=== PATIENT | female | born 1985 | race Caucasian/White ===

== ENCOUNTER → 2017-12-18 | Outpatient (CLI) | payer BC ==
[~2017-12-18] MED LIST: ADDR10T PO; CPR500T PO; METR500T PO
[2017-12-18 16:06] LABS: BASOPHILS % (AUTO) 1 % (0-10); EOSINOPHILS # (AUTO) 0.2 10^3/uL (0.0-0.3); EOSINOPHILS % (AUTO) 4 % (0-10); HEMATOCRIT 37 % (35-52); HEMOGLOBIN 12.5 G/DL (11.5-16.0); LYMPHOCYTES % (AUTO) 33 % (12-44); MEAN CORPUSCULAR HEMOGLOBIN 30 PG (25-34); MEAN CORPUSCULAR HGB CONC 34 G/DL (32-36); MEAN CORPUSCULAR VOLUME 89 FL (80-99); MEAN PLATELET VOLUME 10.2 FL (7.4-10.4); MONOCYTES # (AUTO) 0.3 X 10^3 (0.0-1.0); MONOCYTES % (AUTO) 6 % (0-12); NEUTROPHILS # (AUTO) 3.4 X 10^3 (1.8-7.8); NEUTROPHILS % (AUTO) 57 % (42-75); PLATELET COUNT 280 10^3/uL (130-400); RED BLOOD COUNT 4.17 10^6/uL (4.35-5.85); RED CELL DISTRIBUTION WIDTH 14.2 % (10.0-14.5)
[2017-12-18 16:43] LABS: FREE T4 (FREE THYROXINE) 1.17 NG/DL (0.70-1.48)
== END ==
LOC: LAB 15:46
DX: E03.4 Atrophy of thyroid (acquired) (principal)
CPT/HCPCS: 36415; 84439; 84443; 85025

== ENCOUNTER → 2018-05-06 | Outpatient (CLI) | payer BC ==
[2018-05-06 12:40] LABS: FREE T4 (FREE THYROXINE) 0.99 NG/DL (0.70-1.48)
== END ==
LOC: LAB 11:30
DX: E03.4 Atrophy of thyroid (acquired) (principal)
CPT/HCPCS: 36415; 84439; 84443

== ENCOUNTER → 2018-07-16 | Outpatient (CLI) | payer BC ==
--- NOTE | 2018-07-16 12:52 | Diagnostic Imaging Report ---
EXAM: RIGHT UPPER QUADRANT ULTRASOUND. DATE: July 16, 2018. COMPARISON: CT abdomen/pelvis of March 22, 2011. INDICATION: 32-year-old female, severe right upper quadrant abdominal pain. PROCEDURE: Two-dimensional grayscale and color doppler ultrasound examination of the right upper quadrant was performed. FINDINGS: Liver: The liver is of normal size and echotexture without solid or cystic masses. Bile ducts and gallbladder: There is a nonmobile echogenic focus along the gallbladder wall without shadowing, likely relating to a polyp, measuring 6 mm in size. There is no shadowing gallstone. The gallbladder is not distended. There is no pericholecystic fluid. The gallbladder wall measures 0.2 cm. There is no intrahepatic or extrahepatic biliary ductal dilation. The common bile duct measures 0.2 cm. Right kidney: Unremarkable right kidney. No hydronephrosis. The right kidney measures 10.7 cm x 4.0 cm x 6.1 cm. Pancreas: Normal visualized pancreas. IMPRESSION: 1. There is a 6 mm echogenic nonmobile focus along the gallbladder wall, most compatible with a hyperplastic polyp. 2. No evidence of cholelithiasis or acute cholecystitis. 3. No biliary ductal dilation. 4. Additional right upper quadrant ultrasound evaluation is unremarkable. Dictated by: Dictated on workstation # [id number]
== END ==
LOC: RAD 11:25
PROVIDERS: ATTEND Nurse Practitioner Family
DX: E03.8 Other specified hypothyroidism (principal); R10.11 Right upper quadrant pain
CPT/HCPCS: 76705

== ENCOUNTER → 2019-05-27 | Outpatient (CLI) | payer BC | LOC: LAB 13:42 | PROVIDERS: ATTEND Internal Medicine | DX: E03.4 Atrophy of thyroid (acquired) (principal) | CPT/HCPCS: 36415; 84443 ==

== ENCOUNTER → 2020-11-10 | Outpatient (CLI) | payer BC, OTHER ==
[~2020-11-10] MED LIST changes: +CATHETER FLUSH 10 ML SYR IV PRN; +HOLD METFORMIN - RECEIVED CONTRAST 20 ML VIAL IV SCH; +IOHEXOL 350 MG/ML 100 ML (OMNIPAQUE 350) VIAL IV ONE; +NS 100 ML (IVPB) BAG IV ONE
--- NOTE | 2020-11-10 14:53 | Diagnostic Imaging Report ---
EXAMINATION: CT abdomen and pelvis with intravenous contrast. TECHNIQUE: Multiple contiguous axial images were obtained through the abdomen and pelvis after the uneventful administration of intravenous contrast. All CT scans use one or more of the following dose optimizing techniques: automated exposure control, MA and/or KvP adjustment based on patient size and exam type or iterative reconstruction. HISTORY: Right lower quadrant pain. Vomiting. Concern for appendicitis. COMPARISON: 03/22/2011. 07/16/2018. FINDINGS: The heart is unremarkable. The included lung bases are clear. The liver, spleen, pancreas, adrenal glands, and kidneys have a normal appearance. Small echogenic focus is seen within the gallbladder lumen without CT evidence of acute cholecystitis. There is no pathologically enlarged mesenteric or retroperitoneal adenopathy. The bowel loops are nondilated. The appendix is visualized in the right lower quadrant and has a normal appearance. There is no free fluid or free air. No acute osseous abnormalities. The urinary bladder is moderately distended. No bladder calculi are present. Dominant follicle/cyst is seen in the left adnexa measuring 2.0 x 1.5 cm. There is no free air, loculated collection, or adenopathy in the pelvis. IMPRESSION: 1. No evidence of acute appendicitis. No bowel obstruction, free fluid, or free air. 2. Dominant follicle/cyst in the left adnexa. 3. Moderately distended urinary bladder. 4. Small echogenic focus within the gallbladder lumen, consistent with prior echogenic gallbladder polyp seen on the prior exam from 2019. No CT evidence of acute cholecystitis. Dictated by: Dictated on workstation # [id number]
== END ==
LOC: RAD 14:00
PROVIDERS: ATTEND Family Medicine
DX: N32.89 Other specified disorders of bladder (principal); K50.90 Crohn's disease, unspecified, without complications; E03.9 Hypothyroidism, unspecified; K92.1 Melena; M79.10 Myalgia, unspecified site
CPT/HCPCS: 74177

== ENCOUNTER → 2021-02-20 | Outpatient (CLI) | payer OTHER ==
[~2021-02-20] MED LIST changes: -CATHETER FLUSH 10 ML SYR IV PRN; -HOLD METFORMIN - RECEIVED CONTRAST 20 ML VIAL IV SCH; -IOHEXOL 350 MG/ML 100 ML (OMNIPAQUE 350) VIAL IV ONE; -NS 100 ML (IVPB) BAG IV ONE
--- NOTE | 2021-02-20 15:23 | Diagnostic Imaging Report ---
PROCEDURE: US Non-ob pelvis comp/trans. TECHNIQUE: Multiple realtime grayscale images were obtained of the pelvis in various projections endovaginally. Transabdominal imaging was also performed. INDICATION: Abnormal uterine bleeding. COMPARISON: 11/10/2020. FINDINGS: Transabdominal: The uterus and adnexa have a unremarkable transabdominal appearance. Transvaginal images were obtained for additional characterization. Transvaginal: The uterus is anteverted and measures 9.2 x 5.2 x 4.2. The endometrial stripe measures 0.5 cm and has a normal appearance. The right ovary is well visualized measuring 2.6 x 1.9 x 2.1 cm and demonstrating normal color Doppler flow. Dominant follicle/cyst is seen in the right ovary measuring 1.1 x 1.1 x 0.9 cm. The left ovary is well-visualized measuring 3.9 x 3.1 x 3.4 cm with normal color Doppler flow. A complex cyst is seen in the left ovary measuring 2.7 x 2.8 x 2.5 cm. No adnexal masses. No free fluid is seen in the pelvis. IMPRESSION: 1. Complex cyst in the left ovary, favored to represent a hemorrhagic cyst. No evidence of adnexal mass. No free fluid in the pelvis. 2. Unremarkable appearance of uterus. The endometrium is not thickened. No focal uterine mass is seen. Dictated by: Dictated on workstation # [id number]
== END ==
LOC: RAD 14:21
PROVIDERS: ATTEND Nurse Practitioner Family
DX: N83.202 Unspecified ovarian cyst, left side (principal)
CPT/HCPCS: 76830; 76856